=== PATIENT | female | born 1990 | race African-American/Black ===

== ENCOUNTER 2019-07-12 05:04 | Inpatient (IN) ==
[2019-07-12 05:34] LABS: Apearance,Urine CLOUDY (Clear); Bacteria,Urine Occasional /HPF (Few); Bilirubin,Urine Negative (Negative); Blood, Urine Moderate mg/dL (Negative); Glucose,Urine (UA) Negative (Negative); Ketones,Urine Negative (Negative); Mucus,Urine Occasional /LPF (Occasional); Nitrite,Urine Negative (Negative); Protein,Urine Negative; RBC,Urine 28 /HPF (0-4); Squamous Epithelial Cell,Urine Few /HPF (0-10); Urine Color Yellow (Yellow); Urine Specific Gravity 1.015 (1.001-1.035); Urine Urobilinogen < 2.0 EU/DL (0.2-1.0); WBC,Urine 24 /HPF (0-6)
[2019-07-12] MEDS ORDERED: BUTORPHANOL 2 MG/ML VIAL IV PRN (06:23)
[2019-07-12] MEDS ORDERED: ONDANSETRON 4 MG/2 ML VIAL IV PRN (06:23)
[2019-07-12] MEDS ORDERED: MEPERIDINE 50 MG/1 ML VIAL IV PRN (06:23)
[2019-07-12] MEDS ORDERED: AMPICILLIN INJ 2,000 MG in SODIUM CHLORIDE 0.9% 100 ML IV ONE (06:26)
[2019-07-12] MEDS ORDERED: OXYTOCIN/LR 20 UNIT/1,000 ML BAG IV SCH (06:30)
[2019-07-12] MEDS: LACTATED RINGERS 1,000 ML IV SCH ×2 (06:32→08:43)
[2019-07-12 06:50] LABS: Barbiturates Screen,Urine Negative (Negative); Benzodiazepines Screen,Urine Negative (Negative); Cannabinoid Screen,Urine Positive (Negative); Opiate Screen,Urine Negative (Negative); Phencyclidine Screen,Urine Negative (Negative)
[2019-07-12 07:04] LABS: Basophils % 0.5 % (0.0-0.8); Eosinophils # 0.3 10*3/uL (0.0-0.87); Eosinophils % 3.9 % (0.00-10.9); Hematocrit 35.6 VOL% (35.7-47.0); Hemoglobin 11.3 GM/DL (12.0-16.0); Immature Granulocytes % 0.6 %; Immature Granulocytes Absolute 0.05 #; Lymphocytes # 2.2 10*3/uL (1.4-4.0); Mean Corpuscular HGB Conc 31.7 GM/DL (32-36); Mean Corpuscular Volume 92.5 FL (87-102); Mean Platelet Volume 10.1 FL (9.6-12.0); Monocytes % 9.9 % (1.7-12.7); Neutrophils % 57.1 % (38.7-73.9); Platelet Count 333 T/CUMM (130-400); Red Blood Count 3.85 MC/CUMM (3.8-5.5); Red Cell Distribution Width 13.8 % (9.3-17.3); White Blood Count 7.9 T/CUMM (4-12)
[2019-07-12 07:28] LABS: Alanine Aminotransferase 31 U/L (13-56); Albumin 2.7 G/DL (3.4-5.0); Alkaline Phosphatase 156 U/L (45-117); Aspartate Amino Transferase 21 U/L (0-37); Bilirubin,Total < 0.39 MG/DL (0.2-1.0); Blood Urea Nitrogen 7 MG/DL (7-18); Calcium 8.9 MG/DL (8.5-10.1); Estimated Glom Filtration Rate 176 ML/MIN; Glucose 83 MG/DL (74-106); Osmolality,Calculated 264.2 MOS/KG (273-304); Total Protein 7.1 G/DL (6.4-8.3)
[2019-07-12] MEDS ORDERED: CITRIC ACID/SODIUM CITRATE 30 ML UDCUP PO ONE (07:28)
[2019-07-12] MEDS ORDERED: NALOXONE 0.4 MG/ML VIAL IV PRN (07:28)
[2019-07-12] MEDS ORDERED: PROMETHAZINE 25 MG/1 ML VIAL IM ONE (07:28)
[2019-07-12] MEDS ORDERED: diphenhydrAMINE 50 MG/1 ML VIAL IV PRN ×2 (07:28)
[2019-07-12] MEDS ORDERED: FAMOTIDINE 20 MG/2 ML VIAL IV ONE (07:28)
[2019-07-12] MEDS ORDERED: ONDANSETRON 4 MG/2 ML VIAL IV ONE (07:28)
[2019-07-12] MEDS ORDERED: hydrOXYzine HCL 25 MG/1 ML VIAL IM PRN (07:28)
[2019-07-12] MEDS ORDERED: ePHEDrine 50 MG/ML AMP IV PRN (07:28)
[2019-07-12] MEDS ORDERED: fentaNYL 2 MCG/ROPIV 0.2% EPID 100 ML EPIDURAL SCH (07:30)
[2019-07-12] MEDS ORDERED: miSOPROStoL 200 MCG TABLET ONE (10:20)
[2019-07-12] MEDS ORDERED: METHYLERGONOVINE 0.2 MG/1 ML AMP ONE (10:20)
[2019-07-12] MEDS ORDERED: CARBOPROST TROMETHAMINE 250 MCG/ML AMP IM ONE ×2 (10:20→12:02)
[2019-07-12] MEDS ORDERED: AMPICILLIN INJ 1,000 MG in SODIUM CHLORIDE 0.9% 100 ML IV SCH (10:30)
[2019-07-12] MEDS ORDERED: HYDROCORTISONE 2.5% RECTAL CREAM 30 GM TUBE TOP PRN (12:24)
[2019-07-12] MEDS ORDERED: MEASLES/MUMPS/RUBELLA VACCINE 0.5 ML VIAL SUBCUT ONE (12:24)
[2019-07-12] MEDS ORDERED: DIPH/TET/ACEL PERT BOOSTER VACCINE 0.5 ML VIAL IM ONE (12:24)
[2019-07-12] MEDS ORDERED: OXYTOCIN/LR 20 UNIT/1,000 ML BAG IV ONE (12:24)
[2019-07-12] MEDS ORDERED: oxyCODONE/ACETAMINOPHEN 5-325 MG TABLET PO PRN (12:24)
[2019-07-12] MEDS ORDERED: LANOLIN 50% CREAM 0.3 OZ TUBE TOP PRN (12:24)
[2019-07-12] MEDS ORDERED: RHO(D) IMMUNE GLOBULIN 300 MCG SYRINGE IM ONE (12:24)
[2019-07-12] MEDS ORDERED: WITCH HAZEL PADS 100/JAR TOP PRN (12:24)
[2019-07-12] MEDS ORDERED: DOCUSATE/SENNA 50-8.6 MG TABLET PO PRN (12:24)
[2019-07-12] MEDS ORDERED: BENZOCAINE 20%/MENTHOL 0.5% SPRAY 56 GM CAN TOP PRN (12:24)
[2019-07-12] MEDS ORDERED: BISACODYL 10 MG SUPP RECTAL PRN (12:24)
[2019-07-12] MEDS ORDERED: ACETAMINOPHEN 325 MG TABLET PO PRN (12:24)
[2019-07-12] MEDS: oxyCODONE/ACETAMINOPHEN 5-325 MG TABLET PO PRN (14:35)
[2019-07-12] MEDS: FERROUS SULFATE 325 MG TABLET PO SCH (18:33)
[2019-07-12] MEDS: AMOXICILLIN 500 MG CAPSULE PO SCH (18:34)
[2019-07-13] MEDS: DOCUSATE SODIUM 100 MG CAPSULE PO SCH ×3 (01:35→22:36)
[2019-07-13] MEDS: AMOXICILLIN 500 MG CAPSULE PO SCH ×5 (01:37→22:36)
[2019-07-13] MEDS: FERROUS SULFATE 325 MG TABLET PO SCH ×4 (01:38→22:36)
[2019-07-13 05:40] LABS: Basophils # 0.1 10*3/uL (0.0-0.2); Basophils % 0.5 % (0.0-0.8); Eosinophils # 0.5 10*3/uL (0.0-0.87); Eosinophils % 3.2 % (0.00-10.9); Hematocrit 29.1 VOL% (35.7-47.0); Hemoglobin 9.7 GM/DL (12.0-16.0); Immature Granulocytes % 0.4 %; Immature Granulocytes Absolute 0.06 #; Lymphocytes # 2.9 10*3/uL (1.4-4.0); Lymphocytes % 20.7 % (21.3-54.2); Mean Corpuscular HGB Conc 33.3 GM/DL (32-36); Mean Corpuscular Volume 89.8 FL (87-102); Mean Platelet Volume 10.1 FL (9.6-12.0); Monocytes % 9.4 % (1.7-12.7); Neutrophils % 65.8 % (38.7-73.9); Platelet Count 294 T/CUMM (130-400); Red Blood Count 3.24 MC/CUMM (3.8-5.5); Red Cell Distribution Width 13.5 % (9.3-17.3); White Blood Count 14.1 T/CUMM (4-12)
[2019-07-13] MEDS: IBUPROFEN 800 MG TABLET PO PRN (07:24)
[2019-07-13] MEDS: MULTIVITAMIN (PRENATAL) TABLET PO SCH (09:17)
[2019-07-13] MEDS: oxyCODONE/ACETAMINOPHEN 5-325 MG TABLET PO PRN (15:51)
[2019-07-14] MEDS: AMOXICILLIN 500 MG CAPSULE PO SCH (08:26)
[2019-07-14] MEDS: FERROUS SULFATE 325 MG TABLET PO SCH (08:26)
[2019-07-14] MEDS: MULTIVITAMIN (PRENATAL) TABLET PO SCH (08:26)
[2019-07-14] MEDS: IBUPROFEN 800 MG TABLET PO PRN (08:26)
[2019-07-14] MEDS: DOCUSATE SODIUM 100 MG CAPSULE PO SCH (08:27)
[2019-07-14 08:46] VITALS: BP 125/71
== END 2019-07-14 13:40 | disposition home or self-care (01) | DRG 560 ==
LOC: N.LDOUT 05:04 → N.LD 05:05 → N.OB 07-13 10:41
PROVIDERS: ADMIT Obstetrics & Gynecology; ATTEND Obstetrics & Gynecology